=== PATIENT | female | born 2000 | race Caucasian/White ===

== ENCOUNTER 2023-08-23 00:28 | Emergency (ER) | payer SELFPAY ==
--- NOTE | 2023-08-23 00:38 | PC.NURSE ---
patient left prior to triage
== END 2023-08-23 01:34 | disposition left against medical advice (07) ==
LOC: ANHED 00:48
DX: Z53.21 Procedure and treatment not carried out due to patient leaving prior to being seen by health care provider (principal)
CPT/HCPCS: 99199